=== PATIENT | male | born 1985 | race Native Hawaiian/Other Pacific Islander ===

== ENCOUNTER → 2019-08-04 | Outpatient (CLI) | payer BC ==
--- NOTE | 2019-08-04 10:48 | US ---
EXAMINATION TYPE: US abdomen complete DATE OF EXAM: 08/04/2019 COMPARISON: NONE CLINICAL HISTORY: R10.9 abdominal pain, R35.29 polyuria. Intermittent pelvic and bilateral flank pain x 1 month EXAM MEASUREMENTS: Liver Length: 15.4 cm Gallbladder Wall: 0.2 cm CBD: 0.3 cm Spleen: 11.1 cm Right Kidney: 9.3 x 4.4 x 5.0 cm Left Kidney: 10.3 x 4.9 x 4.6 cm Pancreas: obscured by overlying midline bowel gas Liver: wnl Gallbladder: wnl Evidence for sonographic Watkins's sign: no CBD: visualized portions wnl, limited by overlying bowel gas Spleen: wnl Right Kidney: wnl Left Kidney: wnl Upper IVC: wnl Abd Aorta: proximal portion obscured by overlying midline bowel gas, mid and distal wnl The liver is homogenous. The intrahepatic portion of the IVC and proximal abdominal aorta are within normal limits. There is no evidence of cholelithiasis. Common bile duct is unremarkable. The sple en is unremarkable. Kidneys are symmetric and free of hydronephrosis, cortical measured differentiat ion is maintained. No renal lesions are seen. IMPRESSION: Exam somewhat limited. No abnormality evident.
== END | disposition home or self-care (01) ==
LOC: RADUSWWP 09:37
PROVIDERS: ATTEND Family Medicine
DX: R10.9 Unspecified abdominal pain (principal); R35.8 Other polyuria
CPT/HCPCS: 76700

== ENCOUNTER → 2019-08-08 | Outpatient (CLI) | payer BC ==
--- NOTE | 2019-08-08 14:56 | CT ---
EXAMINATION TYPE: CT abdomen pelvis w con DATE OF EXAM: 08/08/2019 COMPARISON: Abdominal ultrasound dated 08/04/2019 HISTORY: periumbilical pain CT DLP: 510.1 mGycm Automated exposure control for dose reduction was used. TECHNIQUE: Helical acquisition of images was performed from the lung bases through the pelvis. CONTRAST: Performed with Oral Contrast and with IV Contrast, patient injected with 100 mL of Isovue 300. FINDINGS: LUNG BASES: No significant abnormality is appreciated. LIVER/GB: Although the liver is slightly low attenuation and does not meet criteria for hepatic steat osis at this time. PANCREAS: No significant abnormality is seen. SPLEEN: No significant abnormality is seen. ADRENALS: No significant abnormality is seen. KIDNEYS: Kidneys enhance and excrete symmetrically without hydronephrosis. 4 mm too small to accurate ly characterize left lower pole hypoattenuated renal lesion on image 36 of the medial cortex. FREE AIR: No free air is visualized. ADENOPATHY: No greater than 1 cm short axis lymph node in the abdomen or pelvis. OSSEOUS STRUCTURES: There is an indeterminant left iliac bone lesion measuring 1.3 cm. This is scler otic with well-defined margins. Old fracture deformity of the L1 right transverse process is noted.. BOWEL: The appendix is retrocecal, Vicki Bruce contrast-filled, and within normal limits of size carlos suring up to 5 mm. No significant periappendiceal fat stranding or fluid collection is seen. Terminal ileum is grossly unremarkable. No dilated large or small bowel. Rectal fecal stasis is seen with the rectum measuring up to 5.8 cm, upper limits of normal. Well-formed stool is seen in the sigmoid colo n with scattered colonic air-fluid levels. No pericolonic fat stranding. IMPRESSION: 1. No CT evidence of acute appendicitis. 2. Rectal fecal ball is seen with impacted stool in the sigmoid colon and distal bowel measuring uppe r limits of normal. More proximal large bowel and small bowel are also nondilated. Mild colonic ileus secondary to rectal fecal stasis is suspected.
== END | disposition home or self-care (01) ==
LOC: RADCTMAIN 12:41
PROVIDERS: ATTEND Family Medicine
DX: R10.9 Unspecified abdominal pain (principal); R35.8 Other polyuria; G89.29 Other chronic pain
CPT/HCPCS: 74177; Q9967